=== PATIENT | male | born 1955 | race Caucasian/White ===

== ENCOUNTER 2023-11-28 09:46 | Day surgery (SDC) | payer OTHER ==
[2023-11-23 13:55] LABS: Absolute Eosinophils 0.2 K/uL (0-0.5); Absolute Lymphocytes (CBC) 2.3 K/uL (0.7-4.9); Absolute Monocytes 0.6 K/uL (0.1-1.3); Basophils % 0.1 % (0-1.3); Eosinophils % 2.1 % (0-4.4); Hemoglobin 15.5 g/dL (13.6-17.9); Lymphocytes % 33.1 % (15.3-44.8); MCH 29.7 pg (27.0-35.0); MCHC 33.6 g/dL (32.0-36.0); MCV 88.3 fL (80-100); MPV 8.3 fL (7.6-11.3); Neutrophils % 56.7 % (41.7-73.7); Nucleated Red Blood Cells % 0.1 % (0-0); Platelets 193 thou/uL (152-406); RBC Red Blood Cell Count 5.21 M/uL (4.33-5.43); Red Cell Distribution Width 13.2 % (12.1-15.2)
[2023-11-23 13:58] LABS: PT Prothrombin Time 11.6 SECONDS (9.5-12.5); PTT, Activated Partial Thromb 35.9 SECONDS (24.3-36.9); Protime INR 1.06
[2023-11-23 14:02] LABS: Anion Gap 10.3 mEq/L (5.0-15.0); Potassium 4.3 mEq/L (3.5-5.1)
--- NOTE | 2023-11-23 14:33 | RAD REPORT ---
EXAM DESCRIPTION: [place] And Lat (2 Views)11/23/2023 2:19 pm CLINICAL HISTORY: Preop for cardiac catheterization COMPARISON: 2022 FINDINGS: The lungs are moderately hyperaerated. The lungs appear clear of acute infiltrate. The heart is normal size IMPRESSION: No acute abnormalities displayed
--- NOTE | 2023-11-27 14:31 | EKG ---
Test Date: 2023-11-23 Test Time: 13:34:37 Superintendent Marine: CADE MEASUREMENT RESULTS: Intervals: Rate: 60 ME: 168 QRSD: 88 QT: 418 QTc: 418 Lilly: P: 99 ME: 168 QRS: -51 T: 229 INTERPRETIVE STATEMENTS: Normal sinus rhythm Left anterior fascicular block Nonspecific T wave abnormality Abnormal ECG Compared to ECG 12/19/2022 08:50:05 Left anterior fascicular block now present Right ventricular hypertrophy no longer present Early repolarization no longer present T-wave abnormality still present Electronically Signed On 11-27-23 14:17:57 CDT by Marcelino Mendoza
[2023-11-28] MEDS: NA CHLORIDE 0.9% 500 ML ONE (10:20)
[2023-11-28] MEDS ORDERED: HEPA 1000U/500MLS 2,000 UNIT/1,000 ML BAG IV ONE (10:50)
[2023-11-28] MEDS ORDERED: VERAPAMIL HCL 10 MG/4 ML VIAL IV ONE (10:51)
[2023-11-28] MEDS ORDERED: MIDAZOLAM HCL 2 MG/2 ML INJ ONE (10:51)
[2023-11-28] MEDS ORDERED: ATROPINE SULF 1 MG/10 ML SYR IV ONE (10:51)
[2023-11-28] MEDS ORDERED: TICAGRELOR 90 MG TABLET PO ONE (10:51)
[2023-11-28] MEDS ORDERED: FENTANYL CITR 100 MCG/2 ML ONE (10:51)
[2023-11-28] MEDS ORDERED: HEPARIN 5000 UNIT/ML 1 ML VIAL ONE (10:51)
[2023-11-28] MEDS ORDERED: ASPIRIN 325 MG TAB ONE (10:52)
[2023-11-28] MEDS ORDERED: CLOPIDOGREL 75 MG TABLET ONE (10:52)
[2023-11-28] MEDS ORDERED: HEPARIN 10,000 UNIT/10 ML VIAL IV ONE ×2 (10:52→12:29)
[2023-11-28] MEDS ORDERED: LIDOCAINE 1% 20 ML MDV ONE (10:53)
[2023-11-28 15:59] VITALS: O2SAT 99
[2023-11-28 21:34] VITALS: BP 135/69; TEMP 98.2
--- NOTE | 2023-11-28 23:35 | OP ---
Date of Procedure: 11/28/2023 Surgeon: Stanley Matias Indication For Procedure: Unstable angina, abnormal stress test. Procedures Performed: 1.Selective coronary angiogram. 2.Left heart catheterization. 3.Percutaneous coronary intervention of the distal right coronary artery/proximal right posterior de scending artery with a 2.5 x 20 mm drug-eluting stent. 4.Intravascular ultrasound of distal left main ostial left anterior descending. 5.Intravascular ultrasound of obtuse marginal 1 in-stent restenosis. Access: Right common femoral artery, 6-[place] sheath, closed with an Angio-Seal. Complications: None. Bleeding: Less than 50 cc. Anesthesia: Total sedation time was 40 minutes with 2 of Versed and 75 of fentanyl. Description Of Procedure: After risks, benefits, and alternatives were explained to the patient, the patient agreed to proceed with the procedure and signed informed consent. The patient was brought i [facility] cardiac catheterization laboratory, prepped and draped in a sterile fashion. Time-out was perfor med. Sedation was administered. Right common femoral artery access was obtained using micropuncture and a 6-[place] sheath was inserted into the right common femoral artery without any complication. N ext, we used a JL4 catheter and was advanced over a J-wire to the left main artery. Selective odom ry angiogram was done of the left coronary system. That was exchanged later for a JR4 catheter, whic h we used to do selective coronary angiogram of the right coronary artery. Next, EBU 3.5 mm guide wa s advanced to the left main. The patient was heparinized with 8000 heparin. ACT was therapeutic. R unthrough wire was advanced into the LAD. IVUS catheter was advanced into the left main, into the LA D and then the wire was redirected into the left circumflex artery, where IVUS catheter was also adva nced into the left circumflex. At the end, IVUS was removed, wire was removed, and angiogram showed patent ELEAZAR-3 flow in all coronaries. Then, next, we exchanged the EBU 3.5 with a JR4 guide catheter , that was used to engage the RCA artery. Runthrough wire into the RPDA. Second Runthrough wire int o the RPLB. We pre-dilated the RPDA lesions with a 2.5 mm balloon. Next, Synergy 2.5 x 20 mm drug-e luting stent was placed across the lesion, postdilated with NC 3.0 mm balloon. IVUS shows great sten t expansion and no dissections with ELEAZAR-3 flow, so wire was removed and JR4 catheter was removed. F inal angiogram shows good ELEAZAR-3 flow, no dissections. The right common femoral artery sheath was re moved and closed with an Angio-Seal. Complications, none. Estimated blood loss less than 50 cc. Assessment And Plan: 1.Significant proximal right posterior descending artery disease, status post percutaneous coronary intervention with Synergy 2.5 x 20 mm drug-eluting stent. 2.Mild distal left main and ostial left anterior descending disease. The MLA is 8.2 sq mm by IVUS. 3.Mild proximal LAD disease. MLA is 6.4 mm by IVUS. 4.Mild obtuse marginal focal in-stent restenosis with an MLA of 5.4 sq mm. Plan will be to: 1.Continue aspirin 81 mg daily. 2.Plavix 300 mg was given in the lab support service tech, continue Plavix 75 mg daily. 3.Continue aggressive medical management for CAD. FARZANA/GRACIELA Voice ID: [id number] Report ID: [id number]
== END 2023-11-28 17:04 | disposition home or self-care (01) ==
LOC: CCL 09:46
PROVIDERS: ATTEND Internal Medicine
DX: I25.110 Atherosclerotic heart disease of native coronary artery with unstable angina pectoris (principal); T82.855A Stenosis of coronary artery stent, initial encounter; I65.29 Occlusion and stenosis of unspecified carotid artery; I73.9 Peripheral vascular disease, unspecified; I10 Essential (primary) hypertension; E78.5 Hyperlipidemia, unspecified; E11.9 Type 2 diabetes mellitus without complications; F17.210 Nicotine dependence, cigarettes, uncomplicated; Z79.82 Long term (current) use of aspirin; Z79.02 Long term (current) use of antithrombotics/antiplatelets; Z79.84 Long term (current) use of oral hypoglycemic drugs; Z79.899 Other long term (current) drug therapy
CPT/HCPCS: 93005; 85025; 80048; 36415; 83721; 85610; 82947; 85730; 71046; 92979; 92978; 93458; 76937; C1893; C1760; Q9967; G0269; C1725; C9600; J1644; J2001; J0461; J2250; J3010; J7040; 85347; 99152; 99153